=== PATIENT | male | born 1990 | race Asian ===

== ENCOUNTER → 2021-06-03 | Outpatient (CLI) | payer BC ==
[~2021-06-03] MED LIST: FLOMAX 0.4 MG0.4 MG PO; IBU800 MG PO; IBUPROFEN800 MG PO; NORCO 5-325 TA1 EACH PO; OMEPRAZOLE20 M1 PO; OXYBUTYNIN CHLOR5 MG PO; PERCOCET 7.5-31 EACH PO; PYRIDIUM200 MG PO; TORADOL 10 MG T10 MG PO; ZOFRAN 4 MG TAB4 MG PO
== END ==
LOC: CT 14:40
DX: G47.09 Other insomnia (principal); G44.89 Other headache syndrome; Z84.89 Family history of other specified conditions
CPT/HCPCS: 70496; Q9967

== ENCOUNTER → 2021-10-03 | Outpatient (CLI) | payer BC | LOC: RAD 08:42 | DX: Z87.442 Personal history of urinary calculi (principal); R14.3 Flatulence; K59.00 Constipation, unspecified | CPT/HCPCS: 74018 ==

== ENCOUNTER → 2021-12-04 | Outpatient (CLI) | payer OTHER | LOC: EROP 11:45 | DX: Z20.822 Contact with and (suspected) exposure to COVID-19 (principal) | CPT/HCPCS: U0002 ==

== ENCOUNTER → 2022-05-23 | Outpatient (CLI) | payer BC | LOC: LAB 15:10 | DX: Z20.822 Contact with and (suspected) exposure to COVID-19 (principal) | CPT/HCPCS: U0002 ==